=== PATIENT | female | born 1980 | race Caucasian/White ===

== ENCOUNTER 2019-12-22 22:54 | Inpatient (IN) | payer SELFPAY ==
[~2019-12-22] VITALS: Ht 162.6 cm; Wt 62.1 kg
[2019-12-22 23:08] VITALS: BP 111/67
--- NOTE | 2019-12-22 23:20 | NUR ---
PT AMB TO BED 11
--- NOTE | 2019-12-22 23:41 | NUR ---
39f C/O ABD PAIN THAT RADIATES TO LOWER BACK FOR 2D. DENIES V/D. HAS NAUSEA AND LOSS OF APPETITE. 04/16 PAIN PMHX: DENIES RX: DENIES ALLX: DENIES
[2019-12-22 23:44] LABS: APPEARANCE,URINE CLEAR (CLEAR); BILIRUBIN,URINE NEGATIVE (NEGATIVE); BLOOD, URINE 1+ (NEGATIVE); COLOR,URINE YELLOW (YELLOW); LEUKOCYTE ESTERASE ,URINE NEGATIVE (NEGATIVE); NITRITE, URINE NEGATIVE (NEGATIVE); UGLUCOSE NEGATIVE (NEGATIVE)
[2019-12-22 23:44] LABS: HEMATOCRIT 35.1 % (36-48); HEMOGLOBIN 11.2 g/dL (12.0-16.0); MEAN CORPUSCULAR HEMOGLOBIN 29 pg (27-31); MEAN CORPUSCULAR HGB CONC 32 g/dL (33-37); MEAN CORPUSCULAR VOLUME 89.4 fL (80-94); PLATELET COUNT (AUTO) 252 K/uL (140-450); RED BLOOD CELL COUNT(AUTO) 3.93 MIL/uL (4.20-5.40); RED CELL DISTRIBUTION WIDTH 14.4 % (11.6-13.7)
[2019-12-23 00:01] LABS: WHITE BLOOD COUNT (AUTO) 15.8 K/uL (4.8-10.8)
[2019-12-23 00:04] LABS: LYMPHOCYTES % (MANUAL) 3 % (20-46); MONOCYTES % (MANUAL) 6 % (5-12)
[2019-12-23 00:05] LABS: ALBUMIN 3.2 g/dL (3.4-5.0); ANION GAP 10.9 (8-16); CARBON DIOXIDE 28.8 mmol/L (21-32); POTASSIUM 3.7 mmol/L (3.5-5.1); TOTAL BILIRUBIN 0.5 mg/dL (0.0-1.0)
[2019-12-23 00:33] LABS: WBC,URINE 0-5 /HPF (0-5)
[2019-12-23] MEDS ORDERED: ONDANSETRON 4 MG/2 ML VIAL IVP ONE (01:10)
[2019-12-23] MEDS ORDERED: MORPHINE SULFATE 4 MG/ML SYR IVP ONE (01:10)
--- NOTE | 2019-12-23 01:11 | NUR ---
DR. HAGAN NOTIFIED OF PTS TEMPERATURE.
[2019-12-23] MEDS ORDERED: KETOROLAC 15 MG/ML VIAL IM ONE (01:15)
[2019-12-23] MEDS ORDERED: NACL 0.9% 2,000 ML IV SCH (01:20)
[2019-12-23] MEDS ORDERED: DOXYCYCLINE 100 MG in DEXTROSE 5% 100 ML IV SCH (01:25)
[2019-12-23] MEDS ORDERED: cefOXitin 2,000 MG in DEXTROSE 5% 50 ML IV ONE (01:25)
[2019-12-23] MEDS ORDERED: KETOROLAC 15 MG/ML VIAL IVP ONE (01:40)
[2019-12-23] MEDS ORDERED: CLINDAMYCIN 900 MG in DEXTROSE 5% 100 ML IV ONE (01:50)
[2019-12-23] MEDS ORDERED: GENTAMICIN 120 MG in DEXTROSE 5% 100 ML IV ONE (01:50)
[2019-12-23] MEDS ORDERED: GENTAMICIN 80 MG/2 ML VIAL ONE (01:55)
--- NOTE | 2019-12-23 01:59 | NUR ---
MEFOXIN 2G NOT ADMINSTERED, DR. HAGAN CHANGED ANTIBIOTIC.
--- NOTE | 2019-12-23 02:08 | NUR ---
GENTAMYCIN CURRENTLY INFUSING. PT RESTING IN BED COMFORTABLY. NO FURTHER NEEDS AT THIS TIME. BED AT LOWEST AND LOCKED, RAILS UP X 1
[2019-12-23] MEDS ORDERED: CLINDAMYCIN 900 MG/6 ML VIAL IV ONE (02:37)
--- NOTE | 2019-12-23 02:47 | NUR ---
CLINDAMYCIN INFUSION STARTED. NO FURTHER NEEDS AT THIS TIME.
--- NOTE | 2019-12-23 03:35 | NUR ---
PT RESTING IN BED. NO FURTHER NEEDS THIS TIME. STATES THAT HER PAIN IS AT A 0 NOW. BED RAILS UP X 1. BED LOWEST AND LOCKED
[2019-12-23] MEDS ORDERED: DOCUSATE SODIUM 100 MG GELCAP PO PRN (04:20)
[2019-12-23] MEDS ORDERED: NACL 0.9% 1,000 ML IV ONE (04:20)
[2019-12-23] MEDS ORDERED: LORazepam 2 MG/ML VIAL IM/IVP PRN (04:20)
[2019-12-23 05:00] VITALS: BP_SYST 115; BP_SYST 99; BP_DIAS 62; BP_DIAS 70
--- NOTE | 2019-12-23 05:00 | NUR ---
PT ARRIVED BY LASHAY TO ROOM 106 AND AMBULATED TO BED B. SHE IS AOX4 SKIN INTACT WITH LAC 20 GUAGE RUNNING NORMAL SALINE AT 100MLS/HR. PT C/O OF MINIMAL PAIN AT THIS TIME. MRSA SWAB DONE. REPORT GIVEN AT BEDSIDE FROM DIDI HALL AND APRIL HALL ER NURSES.
[2019-12-23] MEDS ORDERED: GENTAMICIN PER PHARMACY MC PRN (05:05)
--- NOTE | 2019-12-23 05:10 | NUR ---
Patient will be admitted to care of Dr Henry. Admited to TELE . Will go to room 106B. Belongings list completed. Report to Elisha HALL .
[2019-12-23] MEDS: DEXT 5% /NACL 0.9% 1,000 ML IV SCH ×3 (06:14→20:48)
[2019-12-23] MEDS: MORPHINE SULFATE 2 MG/ML SYR IVP PRN ×3 (06:27→16:03)
--- NOTE | 2019-12-23 06:30 | NUR ---
IV ABT CLEOCYN HUNG AND RUNNING ORDERED. PT C/O OF MORE SEVERE PAIN AND WAS GIVEN IVP MORPHINE ORDERED.ADMISSION QUESTIONS ASKED AND PT ORIENTED TO ROOM. ALL UNIVERSAL FALLS PRECAUTIONS IN PLACE.
[2019-12-23 07:17] LABS: BARBITURATE, URINE NEGATIVE ng/ml (NEG <=200); BENZODIAZEPINE, URINE NEGATIVE ng/mL (NEG <=200); CANNABINOID, URINE NEGATIVE ng/mL (NEG <=50); COCAINE, URINE NEGATIVE ng/mL (NEG <=300); OPIATE, URINE NEGATIVE ng/mL (NEG <=2000); PHENCYCLIDINE SCREEN,URINE NEGATIVE ng/mL (NEG <=25)
--- NOTE | 2019-12-23 07:25 | NUR ---
RECEIVED BEDSIDE REPORT FROM NIGHTSHIFT NURSE. PT RESTING IN BED. ABLE TO MAKE NEEDS KNOWN. RESPIRATIONS EVEN AND UNLABORED WITH NO SOB OR RESPIRATORY DISTRESS. SKIN WARM AND DRY TO TOUCH. IV SITE IN LEFT AC 20G IS CLEAN, DRY, AND INTACT. SAFETY MEASURES IN PLACE. WILL CONTINUE TO MONITOR
[2019-12-23 08:00] VITALS: BP 113/74
--- NOTE | 2019-12-23 08:42 | NUR ---
PATIENT HAS BEEN SCREENED AND CATEGORIZED MODERATE NUTRITION RISK. PATIENT WILL BE SEEN WITHIN 3-5 DAYS OF ADMISSION. 12/25/19 12/27/[address]
[2019-12-23 08:54] LABS: PROTHROMBIN TIME 9.8 secs (10.8-13.4)
[2019-12-23 09:37] LABS: MAGNESIUM 2.3 mg/dL (1.8-2.4); PHOSPHORUS 2.5 mg/dL (2.5-4.9); THYROID STIMULATING HORMONE 1.6 uIU/mL (0.34-3.74)
--- NOTE | 2019-12-23 09:44 | NUR ---
ADMINISTERED SCHED MED PRESCRIBED PER MD ORDER. PT TOLERATED WELL. MEDICATION EDUCATION PERFORMED. PT VERBALIZED UNDERSTANDING. SAFETY MEASURES IN PLACE. WILL CONTINUE TO MONITOR
[2019-12-23] MEDS ORDERED: GENTAMICIN 100 MG in DEXTROSE 5% 100 ML IV SCH (10:00)
[2019-12-23] MEDS: DOXYCYCLINE 100 MG CAP PO SCH ×2 (10:54→20:44)
--- NOTE | 2019-12-23 10:55 | NUR ---
ADMINISTERED SCHED MED PRESCRIBED PER MD ORDER. PT TOLERATED WELL. MEDICATION EDUCATION PERFORMED. PT VERBALIZED UNDERSTANDING. SAFETY MEASURES IN PLACE. WILL CONTINUE TO MONITOR
[2019-12-23] MEDS ORDERED: CLINDAMYCIN 900 MG in DEXTROSE 5% 100 ML IV SCH ×4 (11:00)
--- NOTE | 2019-12-23 11:49 | NUR ---
PT CALLED AND COMPLAINED OF SEVERE PAIN. PRN PAIN MEDICATION ADMINISTERED PRESCRIBED PER MD ORDER. MEDICATION WAS WASTED WITH SECOND NURSE SENIOR STAFF PSYCHOLOGIST. PT TOLERATED WELL. MEDICATION EDUCATION PERFORMED. PT VERBALIZED UNDERSTANDING. SAFETY MEASURES IN PLACE. WILL CONTINUE TO MONITOR
[2019-12-23] MEDS: cefTRIAXone 2,000 MG in DEXTROSE 5% 100 ML IV SCH (11:53)
[2019-12-23 12:00] VITALS: BP 113/75
--- NOTE | 2019-12-23 13:04 | NUR ---
HOURLY ROUNDING. PT RESTING IN BED. ABLE TO MAKE NEEDS KNOWN. RESPIRATIONS EVEN AND UNLABORED WITH NO SOB OR RESPIRATORY DISTRESS. SKIN WARM AND DRY TO TOUCH. SAFETY MEASURES IN PLACE. WILL CONTINUE TO MONITOR
--- NOTE | 2019-12-23 13:38 | NUR ---
Bark Press Operator Note: EDISON attempted to complete assessment with Corbin Raygoza [phone]. SW left voicemail and will follow up as needed.
[2019-12-23] MEDS ORDERED: BISACODYL 5 MG TABEC PO SCH (15:30)
--- NOTE | 2019-12-23 15:38 | NUR ---
ADMINISTERED SCHED MED PRESCRIBED PER MD ORDER. PT TOLERATED WELL. MEDICATION EDUCATION PERFORMED. PT VERBALIZED UNDERSTANDING. SAFETY MEASURES IN PLACE. WILL CONTINUE TO MONITOR
[2019-12-23 16:00] VITALS: BP 113/70
[2019-12-23] MEDS: ACETAMINOPHEN 325 MG TAB PO PRN (16:03)
--- NOTE | 2019-12-23 16:03 | NUR ---
PT CALLED AND COMPLAINED OF SEVERE PAIN. PRN PAIN MEDICATION ADMINISTERED PRESCRIBED PER MD ORDER. PT ALSO HAD A FEVER OR 100.4. PRN TYLENOL ADMINISTERED PRESCRIBED PER MD ORDER. MEDICATION EDUCATION PERFORMED. PT VERBALIZED UNDERSTANDING. SAFETY MEASURES IN PLACE. WILL CONTINUE TO MONITOR
--- NOTE | 2019-12-23 16:41 | NUR ---
DC PLANN[age] YRS OLD FEMALE PATIENT WAS ADMITTED FROM HOME FOR A DX OF ILEUS , POSSIBLE PYOSALPINX. PT HAS A HX OF OVARIAN FIBROIDS. CT ABD/PELVIS SHOWED DILATED FLUID-FILLED SMALL BOWEL LOOPS SUGGESTED ILEUS. BLOOD AND URINE CULTURE PENDING. ADMINISTERED IVF, IV CLEOCIN AND GENTAMICIN, CONSULTED WITH SPEECH AND HEARING CLINIC DIRECTOR DR CASTRO . DC PLAN TO GO HOME WHEN STABLE CM TO FOLLOW. Addendum: 12/24/19 at 1127 by Lavern Nunez CM SEEN BY [id number] TO CONTINUE IV ANTIBIOTIC AND TRANSVAGINAL US. TRANSVAGINAL US SHOWED HETEROGENOUS ECHOTEXTURE OF THE UTERUS. ON ROCEPHIN. DC PLAN BACK TO HOME ONCE STABLE. Addendum: 12/26/19 at 1136 by Lavern Nunez CM SEEN BY SURGEON - NO SURGICAL INTERVENTION AT THIS TIME, RECOMMENDED GI CONSULT. SEEN BY OB-GYNE - TO CONTINUE ANTIBIOTICS. DC PLAN BACK TO HOME ONCE STABLE.
--- NOTE | 2019-12-23 19:05 | NUR ---
ENDORSED AT BEDSIDE. PT IS STABLE
--- NOTE | 2019-12-23 19:06 | NUR ---
RECEIVED PATIENT IN STABLE CONDITION FROM AM SHIFT NURSE FOR CONTINUITY OF CARE. RESPIRATIONS EVEN, UNLABORED. SKIN WARM, DRY. IV SITE NOTED TO LEFT AC 20G PATENT/INTACT, INFUSING FLUIDS WELL. NO C/O PAIN. NO S/SX ACUTE DISTRESS. CALL LIGHT WITHIN REACH. WILL CONTINUE TO MONITOR.
[2019-12-23 20:00] VITALS: BP 110/61
--- NOTE | 2019-12-23 21:30 | NUR ---
PATIENT AWAKE AND ON PHONE TALKING WITH FAMILY. NO C/O PAIN. NO S/SX ACUTE DISTRESS. CALL LIGHT WITHIN REACH. WILL CONTINUE TO MONITOR.
--- NOTE | 2019-12-23 23:29 | NUR ---
PATIENT RESTING COMFORTABLY IN BED. NO C/O PAIN. NO S/SX ACUTE DISTRESS. CONTINUES IN STABLE CONDITION. CALL LIGHT WITHIN REACH. WILL CONTINUE TO MONITOR.
[2019-12-24] VITALS: BP 133/80
[2019-12-24] MEDS: ONDANSETRON 4 MG/2 ML VIAL IM/IVP PRN (00:22)
[2019-12-24] MEDS: HYDROcodone/APAP 5/325 MG 1 TAB TAB PO PRN (00:23)
--- NOTE | 2019-12-24 00:23 | NUR ---
PATIENT C/O ACHING ABDOMINAL PAIN 02/14. MEDICATED ORDERED. CALL LIGHT WITHIN REACH. WILL CONTINUE TO MONITOR.
--- NOTE | 2019-12-24 01:23 | NUR ---
REASSESSED PATIENT'S PAIN LEVEL AT 0/10. NO S/SX ACUTE DISTRESS. CALL LIGHT WITHIN REACH. WILL CONTINUE TO MONITOR.
--- NOTE | 2019-12-24 01:50 | NUR ---
MADE ROUNDS. PATIENT CONTINUES IN STABLE CONDITION. NO C/O PAIN. NO S/SX ACUTE DISTRESS. CALL LIGHT WITHIN REACH. WILL CONTINUE TO MONITOR.
--- NOTE | 2019-12-24 03:03 | NUR ---
PATIENT CONTINUES IN STABLE CONDITION. NO C/O PAIN. NO S/SX ACUTE DISTRESS. CALL LIGHT WITHIN REACH. WILL CONTINUE TO MONITOR.
[2019-12-24 04:00] VITALS: BP 101/64
--- NOTE | 2019-12-24 05:19 | NUR ---
PATIENT AWAKE AND IN STABLE CONDITION. NO C/O PAIN. NO S/SX ACUTE DISTRESS. CALL LIGHT WITHIN REACH. WILL CONTINUE TO MONITOR.
[2019-12-24 07:10] LABS: BASOPHILS # (AUTO) 0.1 K/uL (0.00-0.22); BASOPHILS % (AUTO) 0.5 % (0.0-2.0); EOSINOPHILS # (AUTO) 0.1 K/uL (0-0.4); EOSINOPHILS % (AUTO) 0.4 % (0.0-4.0); HEMATOCRIT 30.8 % (36-48); HEMOGLOBIN 9.8 g/dL (12.0-16.0); LYMPHOCYTES # (AUTO) 1.3 K/uL (2.5-16.5); LYMPHOCYTES % (AUTO) 9.4 % (20.5-51.1); MEAN CORPUSCULAR HEMOGLOBIN 29 pg (27-31); MEAN CORPUSCULAR HGB CONC 32 g/dL (33-37); MEAN CORPUSCULAR VOLUME 89.6 fL (80-94); MONOCYTES # (AUTO) 1.1 K/uL (0.8-1.0); NEUTROPHILS % (AUTO) 81.7 % (42.2-75.2); PLATELET COUNT (AUTO) 261 K/uL (140-450); RED BLOOD CELL COUNT(AUTO) 3.44 MIL/uL (4.20-5.40); RED CELL DISTRIBUTION WIDTH 14.9 % (11.6-13.7); WHITE BLOOD COUNT (AUTO) 13.4 K/uL (4.8-10.8)
--- NOTE | 2019-12-24 07:17 | NUR ---
ENDORSED PATIENT IN STABLE CONDITION TO AM SHIFT NURSE FOR CONTINUITY OF CARE.
--- NOTE | 2019-12-24 07:18 | NUR ---
RECEIVED REPORT FROM APARTMENT LEASING AGENT NURSE. PT IS LYING IN BED, AWAKE AND RESTING; AA&OX4. RESPIRATIONS ARE EVEN AND UNLABORED, BREATHING TO RA. LAC IV IS INTACT AND PATENT. SKIN INTACT. REVIEWED PLAN OF CARE WITH PT. SAFETY MEASURES IN PLACE; CALL LIGHT WITHIN REACH, BED IN LOW POSITION. WILL CONTINUE TO MONITOR.
[2019-12-24 07:36] LABS: CHOL/HDL RATIO 4.1 (1-4.5)
[2019-12-24 08:00] VITALS: BP 133/77
[2019-12-24 08:05] LABS: ANION GAP 12.4 (8-16); CREATININE 0.7 mg/dL (0.6-1.3); POTASSIUM 4.4 mmol/L (3.5-5.1)
[2019-12-24] MEDS: MORPHINE SULFATE 2 MG/ML SYR IVP PRN (09:22)
[2019-12-24] MEDS: DOXYCYCLINE 100 MG CAP PO SCH (09:22)
--- NOTE | 2019-12-24 09:22 | NUR ---
PT COMPLAINED OF 8/10 HEADACHE PAIN. STATED, "I HAVEN'T SLEPT IN 4 DAYS". 1 MG IVP MORPHINE WAS GIVE. WILL REASSESS PAIN. SCHEDULED PO ANTIBIOTIC WAS ALSO GIVEN. PT TOLERATED PO MED WELL. MEDICATION EDUCATION GIVEN, PT VERBALIZED UNDERSTANDING. SAFETY MEASURES IN PLACE. WILL CONTINUE TO MONITOR.
[2019-12-24] MEDS: ACETAMINOPHEN 325 MG TAB PO PRN (11:21)
--- NOTE | 2019-12-24 11:21 | NUR ---
PT COMPLAINS OF HEADACHE PAIN; PRN TYLENOL GIVEN, ORDERED. WILL REASSESS PAIN. IV FLUIDS WERE HUNG, AND ARE INFUSING PER ORDERS. NO ACUTE DISTRESS NOTED. WILL CONTINUE TO MONITOR.
[2019-12-24] MEDS: DEXT 5% /NACL 0.9% 1,000 ML IV SCH (11:24)
[2019-12-24 12:00] VITALS: BP 138/80
--- NOTE | 2019-12-24 12:12 | NUR ---
DR CASTRO IS AT [facility]. PER DR CASTRO, PT IS NOW NPO.
[2019-12-24] MEDS: cefTRIAXone 2,000 MG in DEXTROSE 5% 100 ML IV SCH (12:16)
--- NOTE | 2019-12-24 12:22 | NUR ---
PT'S IVPB ANTIBIOTIC STARTED AND RUNNING PER ORDERS. PT STATED, "I FEEL HOT." TEMPERATURE WAS TAKEN. TEMP: 99.4. WILL CONTINUE TO MONITOR.
[2019-12-24] MEDS: metroNIDAZOLE 500 MG/NS PREMIX 100 ML IV SCH ×2 (14:48→21:00)
--- NOTE | 2019-12-24 14:48 | NUR ---
PT REPORTS 5/10 HEADACHE PAIN. TORADOL WAS ADMINISTERED IV PUSH. WILL REASSESS PAIN. IVPB ANTIBIOTICS WERE HUNG, AND RUNNING PER ORDERS. WILL CONTINUE TO MONITOR.
[2019-12-24] MEDS ORDERED: KETOROLAC 15 MG/ML VIAL IM SCH (15:00)
[2019-12-24 16:00] VITALS: BP 113/76
[2019-12-24] MEDS: KETOROLAC 30 MG/ML VIAL IVP SCH ×2 (18:00→23:09)
--- NOTE | 2019-12-24 19:27 | NUR ---
GAVE BEDSIDE REPORT FOR HEART COORDINATOR NURSE FOR CONTINUITY OF CARE. PT IS IN STABLE CONDITION.
--- NOTE | 2019-12-24 19:34 | NUR ---
RECEIVED PATIENT IN STABLE CONDITION FROM AM SHIFT NURSE FOR CONTINUITY OF CARE. TELE PATIENT. AAOX4. RESPIRATIONS EVEN, UNLABORED. SKIN WARM, DRY. IV SITE NOTED TO LEFT AC 20G PATENT/INTACT, INFUSING FLUIDS WELL. NO C/O PAIN. NO S/SX ACUTE DISTRESS. CALL LIGHT WITHIN REACH. WILL CONTINUE TO MONITOR.
[2019-12-24 20:00] VITALS: BP 130/82
[2019-12-24] MEDS: DOXYCYCLINE 100 MG in DEXTROSE 5% 100 ML IV SCH (20:11)
--- NOTE | 2019-12-24 21:50 | NUR ---
IV SITE TO LEFT AC 20G LEAKING; DISCONTINUED IV SITE WITH MINIMAL BLEEDING, CANNULA INTACT. NEW IV SITE STARTED TO RIGHT HAND 24G USING ASEPTIC TECHNIQUE. GOOD BLOOD RETURN. NO C/O PAIN. IV FLUIDS INFUSING WELL. CALL LIGHT WITHIN REACH. WILL CONTINUE TO MONITOR.
--- NOTE | 2019-12-24 23:18 | NUR ---
PATIENT ON PHONE WITH FAMILY. DUE MEDS GIVEN. NO S/SX ACUTE DISTRESS. CALL LIGHT WITHIN REACH. WILL CONTINUE TO MONITOR.
[2019-12-25] VITALS: BP 107/55
--- NOTE | 2019-12-25 | NUR ---
RECEIVED PT. AAOX4, NID , IV SITE INTACT AND PATENT , DENIES PAIN. LIQ. DIET TOLERATED . SEEN BY DR. CASTRO PER AM NOD SAID. SAFETY MEASURES IN PLACE - CALL LIGHT WITHIN REACH . POC DISCUSSED AND VERBALIZE UNDERSTANDING , WILL CONT. TO MONITOR. AFEBRILE. Addendum: 12/26/19 at 0357 by Queenie Caraballo RN THE ABOVE NURSE'S NOTES ENRTY IS ERROR WITH REGARDS TO TIME - 0000 - INSTEAD OF 1930 - TOMMY
--- NOTE | 2019-12-25 01:14 | NUR ---
MADE ROUNDS. PATIENT ASLEEP AND IN STABLE CONDITION. NO C/O PAIN. NO S/SX ACUTE DISTRESS. CALL LIGHT WITHIN REACH. WILL CONTINUE TO MONITOR.
--- NOTE | 2019-12-25 03:03 | NUR ---
PATIENT IS ASLEEP AND IN STABLE CONDITION. NO C/O PAIN. NO S/SX ACUTE DISTRESS. CALL LIGHT WITHIN REACH. WILL CONTINUE TO MONITOR.
[2019-12-25 04:00] VITALS: BP 115/76
[2019-12-25] MEDS: metroNIDAZOLE 500 MG/NS PREMIX 100 ML IV SCH ×3 (04:06→22:08)
[2019-12-25 05:17] LABS: BASOPHILS # (AUTO) 0.1 K/uL (0.00-0.22); BASOPHILS % (AUTO) 0.8 % (0.0-2.0); EOSINOPHILS # (AUTO) 0.1 K/uL (0-0.4); EOSINOPHILS % (AUTO) 0.8 % (0.0-4.0); HEMATOCRIT 30.2 % (36-48); HEMOGLOBIN 9.9 g/dL (12.0-16.0); LYMPHOCYTES # (AUTO) 0.9 K/uL (2.5-16.5); LYMPHOCYTES % (AUTO) 9.6 % (20.5-51.1); MEAN CORPUSCULAR HEMOGLOBIN 29 pg (27-31); MEAN CORPUSCULAR HGB CONC 33 g/dL (33-37); MEAN CORPUSCULAR VOLUME 88.5 fL (80-94); MONOCYTES # (AUTO) 0.8 K/uL (0.8-1.0); MONOCYTES % (AUTO) 8.4 % (1.7-9.3); NEUTROPHILS # (AUTO) 7.8 K/uL (1.8-7.7); NEUTROPHILS % (AUTO) 80.4 % (42.2-75.2); PLATELET COUNT (AUTO) 277 K/uL (140-450); RED BLOOD CELL COUNT(AUTO) 3.41 MIL/uL (4.20-5.40); RED CELL DISTRIBUTION WIDTH 14.9 % (11.6-13.7); WHITE BLOOD COUNT (AUTO) 9.7 K/uL (4.8-10.8)
[2019-12-25] MEDS: KETOROLAC 30 MG/ML VIAL IVP SCH ×3 (05:22→18:29)
--- NOTE | 2019-12-25 05:24 | NUR ---
PATIENT AWAKE AND IN STABLE CONDITION. NO S/SX ACUTE DISTRESS. DUE MEDS GIVEN. CALL LIGHT WITHIN REACH. WILL CONTINUE TO MONITOR.
[2019-12-25] MEDS: DEXT 5% /NACL 0.9% 1,000 ML IV SCH ×2 (05:54→18:48)
[2019-12-25 06:20] LABS: ANION GAP 12.7 (8-16); CARBON DIOXIDE 25.7 mmol/L (21-32); CREATININE 0.7 mg/dL (0.6-1.3); POTASSIUM 3.4 mmol/L (3.5-5.1)
[2019-12-25 06:25] LABS: MAGNESIUM 1.7 mg/dL (1.8-2.4); PHOSPHORUS 3.3 mg/dL (2.5-4.9)
[2019-12-25] MEDS ORDERED: POTASSIUM CHLORIDE 40 MEQ, LIDOCAINE MPF 1% 25 MG in NACL 0.9% 250 ML IV ONE (06:45)
[2019-12-25] MEDS ORDERED: MAG SULF 2000 MG/WATER PREMIX 50 ML IV ONE (06:45)
--- NOTE | 2019-12-25 07:00 | NUR ---
ENDORSED TO AM SHIFT NURSE FOR CONTINUITY OF CARE.
--- NOTE | 2019-12-25 07:01 | NUR ---
RECEIVED REPORT FROM [facility] NURSE. PT IS LYING IN BED, RESTING; A&OX4. RESPIRATIONS ARE EVEN AND UNLABORED, BREATHING TO RA. RT HAND IV IS INTACT AND PATENT. SKIN INTACT. REVIEWED PLAN OF CARE WITH PT. SAFETY MEASURES IN PLACE; CALL LIGHT WITHIN REACH, BED IN LOW POSITION. TELE MONITOR ATTACHED. WILL CONTINUE TO MONITOR.
[2019-12-25 08:00] VITALS: BP 106/65
[2019-12-25] MEDS: HYDROcodone/APAP 5/325 MG 1 TAB TAB PO PRN (08:33)
[2019-12-25] MEDS: ONDANSETRON 4 MG/2 ML VIAL IM/IVP PRN (08:33)
--- NOTE | 2019-12-25 08:33 | NUR ---
MAGNESIUM IV WAS HUNG, AND RUNNING PER ORDERS. PT COMPLAINED OF HEADACHE PAIN AND NAUSEA. PRN PO NORCO AND PRN IVP ZOFRAN ADMINISTERED. MEDICATION EDUCATION GIVEN, WITH PT VERBALIZING UNDERSTANDING. WILL REASSESS PAIN. SAFETY MEASURES IN PLACE. WILL CONTINUE TO MONITOR.
[2019-12-25] MEDS ORDERED: diphenhydrAMINE 50 MG/ML VIAL IVP SCH (09:00)
[2019-12-25] MEDS ORDERED: POTASSIUM CHLORIDE 40 MEQ, LIDOCAINE MPF 1% 25 MG in NACL 0.9% 250 ML IV SCH (09:00)
--- NOTE | 2019-12-25 10:33 | NUR ---
IVP BENADRYL WAS ADMINISTERED. IV POTASSIUM WAS HUNG, AND IS RUNNING PER ORDERS. MEDICATION EDUCATION GIVEN, WITH PT VERBALIZING UNDERSTANDING. SAFETY MEASURES IN PLACE. NO DISTRESS NOTED. SAFETY MEASURES IN PLACE. TELE MONITOR ATTACHED. WILL CONTINUE TO MONITOR.
[2019-12-25 12:00] VITALS: BP 112/72
--- NOTE | 2019-12-25 12:42 | NUR ---
SCHEDULED IV TORADOL IVP WAS ADMINISTERED. POTASSIUM IV IS STILL INFUSING; SCHEDULED IV ANTIBIOTICS WERE HELD. MEDICATION EDUCATION GIVEN, WITH PT VERBALIZING UNDERSTANDING. SAFETY MEASURES IN PLACE. NO DISTRESS NOTED. SAFETY MEASURES IN PLACE. TELE MONITOR ATTACHED. WILL CONTINUE TO MONITOR.
[2019-12-25] MEDS: DOXYCYCLINE 100 MG in DEXTROSE 5% 100 ML IV SCH ×2 (15:45→20:16)
--- NOTE | 2019-12-25 15:51 | NUR ---
POTASSIUM INFUSION IS COMPLETE. IVPB DOXYCYCLINE WAS HUNG, AND IS INFUSING PER ORDERS. MEDICATION EDUCATION, PROVIDED. PT IN STABLE CONDITION. SAFETY MEASURES IN PLACE. WILL CONTINUE TO MONITOR.
[2019-12-25 16:00] VITALS: BP 125/75
[2019-12-25] MEDS: cefTRIAXone 2,000 MG in DEXTROSE 5% 100 ML IV SCH (17:11)
--- NOTE | 2019-12-25 17:17 | NUR ---
IVPB ABX, DOXYCYCLINE IS COMPLETE. ROCEPHIN IVPB HUNG, AND RUNNING PER ORDERS. PT IS TALKING ON PHONE, NO DISTRESS NOTED. SAFETY MEASURES IN PLACE WILL CONTINUE TO MONITOR.
--- NOTE | 2019-12-25 18:35 | NUR ---
SCHEDULED TORADOL GIVEN. MEDICATION EDUCATION PROVIDED. NO DISTRESS NOTED. WILL CONTINUE TO MONITOR.
[2019-12-25 20:00] VITALS: BP 122/76
--- NOTE | 2019-12-25 22:00 | NUR ---
MADE ROUNDS , NO COMPLAIN MADE AT THIS TIME. WILL CONT. TO MONITOR . CALL LIGHT WITHIN REACH.
[2019-12-26] VITALS: BP 122/78
--- NOTE | 2019-12-26 | NUR ---
C/O PAIN - SHED. TORADOL TIV GIVEN , WILL CONT. TO MONITOR - CALL LIGHT WITHIN REACH.
[2019-12-26] MEDS: KETOROLAC 30 MG/ML VIAL IVP SCH ×4 (00:04→17:16)
[2019-12-26] MEDS: NACL 0.9% 1,000 ML IV SCH ×3 (00:04→21:26)
[2019-12-26] MEDS ORDERED: TEMAZEPAM 15 MG CAP PO SCH (00:20)
--- NOTE | 2019-12-26 02:00 | NUR ---
SLEEPING - CHEST RISE AND FALL EQUALLY - WILL CONT. TO MONITOR . CALL LIGHT WITHIN REACH.
[2019-12-26 04:00] VITALS: BP 124/78
--- NOTE | 2019-12-26 04:04 | NUR ---
MADE ROUNDS . NO S/S OF ACUTE DISTRESS NOTED AT THIS TIME .
[2019-12-26] MEDS: metroNIDAZOLE 500 MG/NS PREMIX 100 ML IV SCH ×3 (05:40→21:28)
--- NOTE | 2019-12-26 06:00 | NUR ---
MADE ROUNDS , NO COMPLAIN MADE . CALL LIGHT WITHIN REACH.
[2019-12-26 06:54] LABS: BASOPHILS % (AUTO) 0.6 % (0.0-2.0); EOSINOPHILS # (AUTO) 0.1 K/uL (0-0.4); EOSINOPHILS % (AUTO) 0.8 % (0.0-4.0); HEMOGLOBIN 9.8 g/dL (12.0-16.0); LYMPHOCYTES # (AUTO) 0.9 K/uL (2.5-16.5); LYMPHOCYTES % (AUTO) 10.7 % (20.5-51.1); MEAN CORPUSCULAR HEMOGLOBIN 29 pg (27-31); MEAN CORPUSCULAR HGB CONC 33 g/dL (33-37); MEAN CORPUSCULAR VOLUME 87.7 fL (80-94); MONOCYTES # (AUTO) 0.9 K/uL (0.8-1.0); MONOCYTES % (AUTO) 10.3 % (1.7-9.3); NEUTROPHILS # (AUTO) 6.6 K/uL (1.8-7.7); NEUTROPHILS % (AUTO) 77.6 % (42.2-75.2); PLATELET COUNT (AUTO) 304 K/uL (140-450); RED BLOOD CELL COUNT(AUTO) 3.42 MIL/uL (4.20-5.40); RED CELL DISTRIBUTION WIDTH 14.6 % (11.6-13.7); WHITE BLOOD COUNT (AUTO) 8.4 K/uL (4.8-10.8)
[2019-12-26 07:03] LABS: ANION GAP 15.3 (8-16); CARBON DIOXIDE 24.2 mmol/L (21-32); CREATININE 0.6 mg/dL (0.6-1.3); POTASSIUM 3.5 mmol/L (3.5-5.1)
[2019-12-26 07:09] LABS: MAGNESIUM 1.6 mg/dL (1.8-2.4); PHOSPHORUS 3.4 mg/dL (2.5-4.9)
--- NOTE | 2019-12-26 07:10 | NUR ---
PT IS IN BED AWAKE AND RESPONSIVE TO VERBAL COMMANDS. NO COMPLAINS OF PAIN REPORTED. WILL CONTINUE TO MONITOR. CALL LIGHT IN REACH.
--- NOTE | 2019-12-26 07:10 | NUR ---
ENDORSED - PT - STABLE
[2019-12-26] MEDS ORDERED: HYDR-5122 PO (07:19)
[2019-12-26 08:00] VITALS: BP 121/69
[2019-12-26] MEDS ORDERED: APAP/BUTAL/CAFF 325/50/40 MG 1 TAB PO PRN (08:20)
[2019-12-26] MEDS: LACTOBACILLUS RHAMNOSUS GG 1 EACH CAP PO SCH (08:52)
[2019-12-26] MEDS ORDERED: MAG SULF 2000 MG/WATER PREMIX 50 ML IV SCH (09:00)
--- NOTE | 2019-12-26 09:30 | NUR ---
PT IS RESTING IN BED. PT IS ALERT AWAKE AND RESPONSIVE TO VERBAL STIMULI. PT AMBULATES TO BATHROOM WITH STEADY GAIT. NO DISTRESS NOTED. SAFETY MEASURES IN PLACE. WILL CONTINUE TO MONITOR. CALL LIGHT IN REACH.
[2019-12-26] MEDS: DOXYCYCLINE 100 MG in DEXTROSE 5% 100 ML IV SCH ×2 (09:52→20:13)
--- NOTE | 2019-12-26 10:24 | NUR ---
Stock Or Delivery Clerk Note: SW attempted to conduct assessment with patient's Mireya Raygoza [phone]. SW left VM and will follow up. Addendum: 12/26/19 at 1048 by Ravi Gomez SS Basic Screen: Yes High Risk DC Screen [place]: MIREYA RAYGOZA [place] Relationship: Pre-Admission Living Arrangements: Lives with Other Prior ADL Independent Current Home Health Name/Tel: N/A Current DME/02 Name/Tel: N/A Current Hospice Name/Tel: N/A Current Dialysis Name/Tel: N/A Healthcare Decision Maker: Patient Advance Directive No Physician Orders for Life Sustaining Treatment Form No Patient/Family Have Educational Needs No Discipline: Case Mgt/Social Svcs Tentative Discharge Plan/Destination: No Needs Identified Will require assistance post discharge: No Referred to Integration Director: No Tentative Discharge Plan Summary: Patient is a 39-year-old female admitted for ileus and possible pyosalpin. Patient has PMHX of uterine fibroid and ovarian fibroids. Patient was admitted from home where she lives with her . SW was contacted by Mireya Raygoza [phone]. Per Mireya, patient is independent with all ADLs, is alert/oriented at baseline, and has no history of mental health or substance abuse. Tentative discharge plan is for patient to return home. No further needs identified. Signature: GIOVANA Giraldo Date: Dec 26, 2019 Time: 10:48
--- NOTE | 2019-12-26 12:30 | NUR ---
PT IS RESTING IN BED. PT IS ALERT AWAKE AND RESPONSIVE TO VERBAL STIMULI. NO DISTRESS NOTED. SAFETY MEASURES IN PLACE. PT HAD LUNCH. WILL CONTINUE TO MONITOR. CALL LIGHT IN REACH.
[2019-12-26] MEDS: cefTRIAXone 2,000 MG in DEXTROSE 5% 100 ML IV SCH (13:50)
--- NOTE | 2019-12-26 14:01 | NUR ---
PT IS RESTING IN BED. PT IS ALERT AWAKE AND RESPONSIVE TO VERBAL STIMULI. NO DISTRESS NOTED. PT TALKING TO FAMILY OVER PHONE. SAFETY MEASURES IN PLACE. WILL CONTINUE TO MONITOR. CALL LIGHT IN REACH.
[2019-12-26 16:00] VITALS: BP 118/73
--- NOTE | 2019-12-26 19:23 | NUR ---
SHIFT REPORT GIVEN TO COMMERCIAL HVAC SERVICE TECHNICIAN NURSE. PT IS IN STABLE CONDITION. CALL LIGHT IN REACH.
--- NOTE | 2019-12-26 19:23 | NUR ---
RECEIVED PT AAOX4 , NID , IV SITE INTACT AND PATENT , DENIES PAIN AT THIS TIME . AMBULATORY .SAFETY MEASURES INPLACE - CALL LIGHT WITHIN REACH . ON FULL LIQ. DIET RE EMPHASIZED . POC DISCUSSED AND VERBALIZE UNDERSTANDING . WILL CONT. TO MONITOR.
[2019-12-26] MEDS ORDERED: TEMAZEPAM 15 MG CAP PO PRN (20:00)
[2019-12-26] MEDS: PANTOPRAZOLE 40 MG INJ VIAL IVP SCH (21:28)
--- NOTE | 2019-12-26 22:00 | NUR ---
MADE ROUNDS . NO S/S AOF ACUTE DISTRESS NOTED AT THIS TIME . CALL LIGHT WITHIN REACH.
--- NOTE | 2019-12-27 | NUR ---
MADE ROUNDS , NO COMPLAIN MADE AT THIS TIME . CALL LIGHT WITHIN REACH.
[2019-12-27] MEDS: KETOROLAC 30 MG/ML VIAL IVP SCH ×3 (00:04→11:55)
--- NOTE | 2019-12-27 02:00 | NUR ---
SLEEPING - CHEST RISE AND FALL EQUALLY . CALL LIGHT WITHIN REACH.
[2019-12-27 04:00] VITALS: BP 112/65
[2019-12-27] MEDS: metroNIDAZOLE 500 MG/NS PREMIX 100 ML IV SCH ×2 (05:30→13:09)
--- NOTE | 2019-12-27 06:00 | NUR ---
MADE ROUNDS, NO COMPLAIN MADE .
--- NOTE | 2019-12-27 07:11 | NUR ---
ENDORSED - PT - STABLE
[2019-12-27 08:05] VITALS: BP 119/68
[2019-12-27] MEDS: LACTOBACILLUS RHAMNOSUS GG 1 EACH CAP PO SCH (09:19)
[2019-12-27] MEDS: PANTOPRAZOLE 40 MG INJ VIAL IVP SCH (09:20)
[2019-12-27] MEDS: DOXYCYCLINE 100 MG in DEXTROSE 5% 100 ML IV SCH (09:20)
--- NOTE | 2019-12-27 09:20 | NUR ---
Patient resting comfortably in bed with no complaint of any pain or discomfort. Scheduled IV abx and other morning medications given per order. Patient stable at this time.
[2019-12-27] MEDS ORDERED: DOXY100C9 PO (10:12)
[2019-12-27] MEDS ORDERED: ASCO1CAP75 PO (10:12)
[2019-12-27] MEDS: cefTRIAXone 2,000 MG in DEXTROSE 5% 100 ML IV SCH (11:55)
[2019-12-27 12:00] VITALS: BP 123/62
[2019-12-27] MEDS: NACL 0.9% 1,000 ML IV SCH (12:30)
--- NOTE | 2019-12-27 13:10 | NUR ---
Scheduled IV abx given. Patient resting in bed, talking on cell phone. No distress noted. Patient stable at this time.
--- NOTE | 2019-12-27 14:40 | NUR ---
Patient ambulated to bathroom and back to bed. Patient stable at this time.
[2019-12-27 14:48] VITALS: BP 123/62
--- NOTE | 2019-12-27 15:15 | NUR ---
Discharge instructions Both written and verbal discharge instructions given to patient. Patient verbalized understanding of instructions. All belongings with patient. Patient stable at this time; awaiting family to mushroom picker.
--- NOTE | 2019-12-27 16:10 | NUR ---
Discharge Patient discharged to home in stable condition.
[2019-12-28 06:08] LABS: CHLAMYDIA TRACHOMATIS AMP DNA Negative (Negative)
== END 2019-12-27 16:10 | disposition home or self-care (01) | DRG 872 ==
LOC: MED 22:54 → MTU 12-23 04:23
PROVIDERS: ADMIT General Practice; ATTEND General Practice
DX: A41.9 Sepsis, unspecified organism (principal); N17.9 Acute kidney failure, unspecified; K56.7 Ileus, unspecified; E44.1 Mild protein-calorie malnutrition; R65.20 Severe sepsis without septic shock; N70.91 Salpingitis, unspecified; D64.9 Anemia, unspecified; E88.09 Other disorders of plasma-protein metabolism, not elsewhere classified; D25.9 Leiomyoma of uterus, unspecified; R73.9 Hyperglycemia, unspecified; Z83.3 Family history of diabetes mellitus; Z82.49 Family history of ischemic heart disease and other diseases of the circulatory system; Z68.37 Body mass index [BMI] 37.0-37.9, adult; N28.1 Cyst of kidney, acquired; N73.9 Female pelvic inflammatory disease, unspecified; E83.42 Hypomagnesemia; E87.6 Hypokalemia
CPT/HCPCS: 36415; 76830; 80048; 80053; 80305; 81001; 83036; 83605; 83690; 83735; 83880; 84100; 84443; 84703; 85025; 85610; 85651; 85730; 86140; 87040; 87081; 87086; 87491; 96365; 96367; 96375; 99291; C9113; J0694; J0696; J1200; J1580; J1885; J2001; J2270; J2405; J3475; J3480; J3490; J7030; J7042; J7060; Q0092; Q9967

== ENCOUNTER 2020-05-11 16:37 | Emergency (ER) | payer MEDICAID, SELFPAY ==
[~2020-05-11] VITALS: Ht 162.6 cm; Wt 60.8 kg
[~2020-05-11 16:37] MED LIST: ASCO1CAP75 PO; DOXY100C9 PO; HYDR-5122 PO
[2020-05-11 16:51] VITALS: BP 124/73
--- NOTE | 2020-05-11 17:17 | NUR ---
40 Y/O F C/C LOWER ABDOMINAL PAIN 10/10, RADIATING TO THE RLE AND LOWER BACK, NOTHING ALLEVIATES IT, ACTIVITY/REST EXACERBATES PAIN X 4 DAYS. PT DENIES DYSURIA,HEMATURIA. TAKEN NORCO/IBUPROFEN FOR PAIN WITH NO RELIEF. NKA. NO HX. SX FIBROSIS 2000,APPENDIX 1997,OVARIAN CYST 2001. NO HX. NO RX. NO NVD. SIDE RAIL X1.
--- NOTE | 2020-05-11 17:20 | NUR ---
ERMD AT BEDSIDE
[2020-05-11] MEDS ORDERED: KETOROLAC 15 MG/ML VIAL IVP ONE (17:35)
[2020-05-11] MEDS ORDERED: MORPHINE SULFATE 4 MG/ML SYR IVP ONE (17:35)
[2020-05-11] MEDS ORDERED: ONDANSETRON 4 MG/2 ML VIAL IVP ONE (17:35)
[2020-05-11 17:56] LABS: BASOPHILS % (AUTO) 0.3 % (0.0-2.0); EOSINOPHILS % (AUTO) 0.4 % (0.0-4.0); HEMOGLOBIN 10.2 g/dL (12.0-16.0); LYMPHOCYTES # (AUTO) 0.8 K/uL (2.5-16.5); LYMPHOCYTES % (AUTO) 6.2 % (20.5-51.1); MEAN CORPUSCULAR HEMOGLOBIN 28 pg (27-31); MEAN CORPUSCULAR HGB CONC 31 g/dL (33-37); MEAN CORPUSCULAR VOLUME 88.4 fL (80-94); MONOCYTES # (AUTO) 1.2 K/uL (0.8-1.0); MONOCYTES % (AUTO) 9.1 % (1.7-9.3); NEUTROPHILS # (AUTO) 10.7 K/uL (1.8-7.7); PLATELET COUNT (AUTO) 268 K/uL (140-450); RED BLOOD CELL COUNT(AUTO) 3.73 MIL/uL (4.20-5.40); RED CELL DISTRIBUTION WIDTH 18.2 % (11.6-13.7); WHITE BLOOD COUNT (AUTO) 12.8 K/uL (4.8-10.8)
--- NOTE | 2020-05-11 17:56 | NUR ---
URINE COLLECTED / BLOOD COLLECTED RAINBOW GIVEN TO LAB
[2020-05-11 17:57] LABS: APPEARANCE,URINE CLEAR (CLEAR); BILIRUBIN,URINE NEGATIVE (NEGATIVE); BLOOD, URINE 2+ (NEGATIVE); COLOR,URINE ORANGE (YELLOW); LEUKOCYTE ESTERASE ,URINE NEGATIVE (NEGATIVE); NITRITE, URINE NEGATIVE (NEGATIVE); UGLUCOSE NEGATIVE (NEGATIVE)
--- NOTE | 2020-05-11 17:57 | NUR ---
US AT BEDSIDE
[2020-05-11 18:15] LABS: ALBUMIN 3.2 g/dL (3.4-5.0); ANION GAP 16.7 (8-16); CARBON DIOXIDE 23.9 mmol/L (21-32); CREATININE 0.5 mg/dL (0.6-1.3); POTASSIUM 3.6 mmol/L (3.5-5.1); TOTAL BILIRUBIN 0.3 mg/dL (0.0-1.0)
--- NOTE | 2020-05-11 18:33 | NUR ---
Patient taken to CT scan via wheelchair by tech.
--- NOTE | 2020-05-11 18:49 | NUR ---
Patient returned from CT scan. RN reevaluating the patient at bedside.
--- NOTE | 2020-05-11 19:05 | NUR ---
REPORT RECEIVED FROM ZOE HALL FOR CONTINUITY OF CARE
--- NOTE | 2020-05-11 19:06 | NUR ---
REPORT GIVEN TO JONATHAN HALL FOR CONTINUITY OF CARE
--- NOTE | 2020-05-11 19:20 | NUR ---
PT STATED MEDICATIONS "HELPED A LITTLE" PT STATES 8/ PAIN. ERMD MADE AWARE.
[2020-05-11] MEDS ORDERED: HYDROmorphone PFS 2 MG/ML SYR IVP ONE (19:35)
[2020-05-11 19:57] LABS: RBC,URINE 11-20 (MOD) /HPF (0-5); WBC,URINE 0-5 /HPF (0-5)
[2020-05-11 20:17] VITALS: BP 125/70
--- NOTE | 2020-05-11 20:17 | NUR ---
Patient discharged with v/s stable. Written and verbal after care instructions given and explained. Patient verbalized understanding. Ambulatory with steady gait. ID Band Removed. IV Discontinued. All questions addressed prior to discharge. Advised to follow up with PMD.
== END 2020-05-11 20:17 | disposition home or self-care (01) ==
LOC: MED 16:37
DX: N83.291 Other ovarian cyst, right side (principal); D25.9 Leiomyoma of uterus, unspecified; K59.00 Constipation, unspecified; Z90.49 Acquired absence of other specified parts of digestive tract; Z98.890 Other specified postprocedural states; Z79.899 Other long term (current) drug therapy
CPT/HCPCS: 36415; 74176; 76856; 80053; 81001; 83690; 84703; 85025; 96374; 96375; 99285; J1170; J1885; J2270; J2405; Q0092

== ENCOUNTER 2020-08-10 13:02 | Outpatient (CLI) | payer OTHER, SELFPAY | END 2020-08-10 23:59 | disposition home or self-care (01) | LOC: MLB 13:02 → EDSTATUS 08-17 07:30 | PROVIDERS: ATTEND Obstetrics & Gynecology | DX: U07.1 COVID-19 (principal) ==

== ENCOUNTER 2020-09-03 06:09 | Inpatient (IN) | payer OTHER ==
[~2020-09-03] VITALS: Ht 162.6 cm; Wt 59.0 kg
[~2020-09-03 06:09] MED LIST changes: -ASCO1CAP75 PO; -DOXY100C9 PO; -HYDR-5122 PO; +ONDANSETRON 4 MG/2 ML VIAL IVP PRN; +diphenhydrAMINE 50 MG/ML VIAL IVP PRN
[2020-09-03 06:59] LABS: BASOPHILS % (AUTO) 0.7 % (0.0-2.0); EOSINOPHILS # (AUTO) 0.1 K/uL (0-0.4); EOSINOPHILS % (AUTO) 1.3 % (0.0-4.0); HEMATOCRIT 40.5 % (36-48); HEMOGLOBIN 13.7 g/dL (12.0-16.0); LYMPHOCYTES # (AUTO) 1.9 K/uL (2.5-16.5); LYMPHOCYTES % (AUTO) 28.9 % (20.5-51.1); MEAN CORPUSCULAR HEMOGLOBIN 31 pg (27-31); MEAN CORPUSCULAR HGB CONC 34 g/dL (33-37); MEAN CORPUSCULAR VOLUME 91.2 fL (80-94); MONOCYTES # (AUTO) 0.6 K/uL (0.8-1.0); MONOCYTES % (AUTO) 9.9 % (1.7-9.3); NEUTROPHILS # (AUTO) 3.8 K/uL (1.8-7.7); NEUTROPHILS % (AUTO) 59.2 % (42.2-75.2); PLATELET COUNT (AUTO) 274 K/uL (140-450); RED BLOOD CELL COUNT(AUTO) 4.44 MIL/uL (4.20-5.40); RED CELL DISTRIBUTION WIDTH 13.8 % (11.6-13.7); WHITE BLOOD COUNT (AUTO) 6.4 K/uL (4.8-10.8)
[2020-09-03 07:20] LABS: ALBUMIN 4.5 g/dL (3.4-5.0); ANION GAP 12.4 (8-16); CARBON DIOXIDE 28.8 mmol/L (21-32); CREATININE 0.6 mg/dL (0.6-1.3); POTASSIUM 4.2 mmol/L (3.5-5.1); TOTAL BILIRUBIN 0.5 mg/dL (0.0-1.0)
[2020-09-03] MEDS ORDERED: LIDOCAINE 1% 500 MG/50 ML VIAL ONE (07:30)
[2020-09-03] MEDS ORDERED: BUPIVACAINE-MPF/EPI 0.5% 30 ML VIAL INJ ONE (07:30)
[2020-09-03] MEDS ORDERED: MIDAZOLAM 2 MG/2 ML VIAL ONE (08:02)
[2020-09-03] MEDS ORDERED: SUCCINYLCHOLINE CHLORIDE 200 MG/10 ML VIAL IVP ONE (08:02)
[2020-09-03] MEDS ORDERED: METOCLOPRAMIDE 10 MG/2 ML INJ VIAL ONE (08:02)
[2020-09-03] MEDS ORDERED: fentaNYL citrate 0.05 MG/ML VIAL ONE (08:02)
[2020-09-03] MEDS ORDERED: LIDOCAINE 2% 100 MG/5 ML SYR IVP ONE (08:02)
[2020-09-03] MEDS ORDERED: GLYCOPYRROLATE 0.2 MG/ML VIAL ONE (08:02)
[2020-09-03] MEDS ORDERED: KETOROLAC 30 MG/ML VIAL ONE ×2 (08:02)
[2020-09-03] MEDS ORDERED: NEOSTIGMINE 1:1000 10 MG/10 ML VIAL ONE (08:02)
[2020-09-03] MEDS ORDERED: ePHEDrine 50 MG/ML VIAL ONE (08:02)
[2020-09-03] MEDS ORDERED: SEVOFLURANE 250 ML BTL INH ONE (08:02)
[2020-09-03] MEDS ORDERED: PROPOFOL 200 MG/20 ML VIAL IV ONE (08:02)
[2020-09-03] MEDS ORDERED: ONDANSETRON 4 MG/2 ML VIAL ONE (08:02)
[2020-09-03] MEDS ORDERED: ONDANSETRON 4 MG/2 ML VIAL IVP PRN (08:45)
[2020-09-03] MEDS ORDERED: diphenhydrAMINE 50 MG/ML VIAL IVP PRN (08:45)
[2020-09-03] MEDS ORDERED: MEPERIDINE 25 MG/ML SYR IVP PRN (08:45)
[2020-09-03] MEDS ORDERED: bisacodyL 10 MG SUPP RC SCH (09:00)
[2020-09-03] MEDS ORDERED: HYDROmorphone PFS 2 MG/ML SYR ONE (10:06)
[2020-09-03] MEDS: HYDROmorphone 1 MG/ML AMP IVP PRN ×4 (10:09→10:44)
[2020-09-03] MEDS: LACTATED RINGERS 1,000 ML IV SCH ×2 (12:21→22:22)
[2020-09-03] MEDS: oxyCODONE/APAP 5/325 MG 1 TAB TAB PO PRN (20:08)
[2020-09-04] MEDS: oxyCODONE/APAP 5/325 MG 1 TAB TAB PO PRN ×2 (02:09→06:36)
[2020-09-04] MEDS: LACTATED RINGERS 1,000 ML IV SCH (06:38)
[2020-09-04 08:11] LABS: BASOPHILS % (AUTO) 0.5 % (0.0-2.0); EOSINOPHILS % (AUTO) 0.3 % (0.0-4.0); HEMATOCRIT 23.3 % (36-48); LYMPHOCYTES # (AUTO) 2.1 K/uL (2.5-16.5); LYMPHOCYTES % (AUTO) 33.8 % (20.5-51.1); MEAN CORPUSCULAR HEMOGLOBIN 31 pg (27-31); MEAN CORPUSCULAR HGB CONC 34 g/dL (33-37); MEAN CORPUSCULAR VOLUME 90.5 fL (80-94); MONOCYTES # (AUTO) 0.9 K/uL (0.8-1.0); MONOCYTES % (AUTO) 14.1 % (1.7-9.3); NEUTROPHILS # (AUTO) 3.3 K/uL (1.8-7.7); NEUTROPHILS % (AUTO) 51.3 % (42.2-75.2); PLATELET COUNT (AUTO) 205 K/uL (140-450); RED BLOOD CELL COUNT(AUTO) 2.58 MIL/uL (4.20-5.40); RED CELL DISTRIBUTION WIDTH 13.9 % (11.6-13.7); WHITE BLOOD COUNT (AUTO) 6.3 K/uL (4.8-10.8)
--- NOTE | 2020-09-04 09:55 | NUR ---
PATIENT HAS BEEN SCREENED AND CATEGORIZED LOW NUTRITION RISK. PATIENT WILL BE SEEN WITHIN 7 DAYS OF ADMISSION. 09/10/[address]
[2020-09-04] MEDS ORDERED: ONDANSETRON 4 MG/2 ML VIAL IVP PRN (10:10)
[2020-09-04] MEDS ORDERED: HYDROcodone/APAP 5/325 MG 1 TAB TAB PO PRN (10:35)
[2020-09-04] MEDS ORDERED: SIMETHICONE 80 MG TAB.CHEW PO PRN (10:35)
[2020-09-04] MEDS ORDERED: oxyCODONE/APAP 5/325 MG 1 TAB TAB PO PRN (10:35)
[2020-09-04] MEDS ORDERED: KETOROLAC 15 MG/ML VIAL IVP PRN (12:20)
[2020-09-04] MEDS ORDERED: IRON SUCROSE COMPLEX 100 MG/5 ML VIAL IVP SCH (14:00)
[2020-09-04] MEDS: FERROUS SULFATE 325 MG TABEC PO SCH (18:29)
[2020-09-04] MEDS ORDERED: CAMERA MC ONE (20:09)
[2020-09-04] MEDS: HYDROcodone/APAP 5/325 MG 1 TAB TAB PO PRN (20:35)
[2020-09-04] MEDS ORDERED: diphenhydrAMINE 50 MG CAP PO PRN (21:00)
[2020-09-05] MEDS: HYDROcodone/APAP 5/325 MG 1 TAB TAB PO PRN ×2 (04:05→10:46)
[2020-09-05] MEDS: FERROUS SULFATE 325 MG TABEC PO SCH (09:25)
== END 2020-09-05 11:50 | disposition home or self-care (01) | DRG 513 ==
LOC: MDS 06:09 → MFCC 06:10 → MDS 19:29
PROVIDERS: ADMIT Obstetrics & Gynecology; ATTEND Obstetrics & Gynecology
PROC: 0HB7XZZ Excision of Abdomen Skin, External Approach (ICD-10-PCS; 2020-09-03)
PROC: 0UT10ZZ Resection of Left Ovary, Open Approach (ICD-10-PCS; principal; 2020-09-03 07:30)
DX: N80.1 Endometriosis of ovary (principal); Z20.828 Contact with and (suspected) exposure to other viral communicable diseases; D64.9 Anemia, unspecified; E03.9 Hypothyroidism, unspecified; L91.0 Hypertrophic scar; Z90.710 Acquired absence of both cervix and uterus; Z86.19 Personal history of other infectious and parasitic diseases
CPT/HCPCS: 36415; 80053; 85025; 86870; 86886; 86900; 86901; 88305; J0330; J0690; J1170; J1756; J1885; J2001; J2175; J2250; J2405; J2704; J2710; J2765; J3010; J3490; J7060; J7120; Q0163; U0003

== ENCOUNTER 2020-09-11 09:11 | Inpatient (IN) | payer OTHER ==
[~2020-09-11] VITALS: Ht 162.6 cm; Wt 54.9 kg
[2020-09-11 09:22] VITALS: BP 117/70
--- NOTE | 2020-09-11 09:26 | NUR ---
TO LOBBY A/W BED AMBULATORY
[2020-09-11 09:50] VITALS: BP 117/70
--- NOTE | 2020-09-11 10:37 | NUR ---
SEEN BY ERMD AND EVALUATED.
[2020-09-11 11:15] LABS: BASOPHILS # (AUTO) 0.1 K/uL (0.00-0.22); BASOPHILS % (AUTO) 0.7 % (0.0-2.0); EOSINOPHILS % (AUTO) 0.4 % (0.0-4.0); HEMATOCRIT 31.2 % (36-48); HEMOGLOBIN 10.3 g/dL (12.0-16.0); LYMPHOCYTES # (AUTO) 2.6 K/uL (2.5-16.5); LYMPHOCYTES % (AUTO) 19.4 % (20.5-51.1); MEAN CORPUSCULAR HEMOGLOBIN 31 pg (27-31); MEAN CORPUSCULAR HGB CONC 33 g/dL (33-37); MEAN CORPUSCULAR VOLUME 93.2 fL (80-94); MONOCYTES # (AUTO) 1.2 K/uL (0.8-1.0); MONOCYTES % (AUTO) 8.8 % (1.7-9.3); NEUTROPHILS # (AUTO) 9.6 K/uL (1.8-7.7); NEUTROPHILS % (AUTO) 70.7 % (42.2-75.2); PLATELET COUNT (AUTO) 517 K/uL (140-450); RED BLOOD CELL COUNT(AUTO) 3.35 MIL/uL (4.20-5.40); RED CELL DISTRIBUTION WIDTH 15.6 % (11.6-13.7); WHITE BLOOD COUNT (AUTO) 13.5 K/uL (4.8-10.8)
[2020-09-11 11:27] LABS: ANION GAP 10.8 (8-16); CREATININE 0.5 mg/dL (0.6-1.3); POTASSIUM 3.8 mmol/L (3.5-5.1)
[2020-09-11 11:32] LABS: ALBUMIN 4.1 g/dL (3.4-5.0); BILIRUBIN,DIRECT 0.2 mg/dL (0.0-0.3); TOTAL BILIRUBIN 0.9 mg/dL (0.0-1.0)
[2020-09-11] MEDS ORDERED: NACL 0.9% 1,000 ML IV ONE (14:45)
[2020-09-11] MEDS: metroNIDAZOLE 500 MG/NS PREMIX 100 ML IV SCH (18:23)
[2020-09-11] MEDS ORDERED: oxyCODONE/APAP 5/325 MG 1 TAB TAB PO PRN ×2 (18:35)
[2020-09-11] MEDS ORDERED: IBUPROFEN 800 MG TAB PO PRN (18:35)
[2020-09-12] MEDS ORDERED: NACL 0.9% 1,000 ML IV SCH (02:05)
[2020-09-12] MEDS: metroNIDAZOLE 500 MG/NS PREMIX 100 ML IV SCH ×3 (02:32→17:54)
[2020-09-12] MEDS: HYDROcodone/APAP 5/325 MG 1 TAB TAB PO PRN ×3 (06:47→21:35)
--- NOTE | 2020-09-12 06:55 | NUR ---
PATIENT HAS BEEN SCREENED AND CATEGORIZED LOW NUTRITION RISK. PATIENT WILL BE SEEN WITHIN 7 DAYS OF ADMISSION. 09/18/20 BR[address] MBA,RD
[2020-09-12 07:47] LABS: BASOPHILS # (AUTO) 0.1 K/uL (0.00-0.22); BASOPHILS % (AUTO) 0.7 % (0.0-2.0); EOSINOPHILS # (AUTO) 0.1 K/uL (0-0.4); EOSINOPHILS % (AUTO) 1.6 % (0.0-4.0); HEMATOCRIT 27.3 % (36-48); HEMOGLOBIN 9.2 g/dL (12.0-16.0); LYMPHOCYTES # (AUTO) 3.1 K/uL (2.5-16.5); LYMPHOCYTES % (AUTO) 36.3 % (20.5-51.1); MEAN CORPUSCULAR HEMOGLOBIN 32 pg (27-31); MEAN CORPUSCULAR HGB CONC 34 g/dL (33-37); MONOCYTES # (AUTO) 0.6 K/uL (0.8-1.0); MONOCYTES % (AUTO) 7.4 % (1.7-9.3); NEUTROPHILS # (AUTO) 4.6 K/uL (1.8-7.7); PLATELET COUNT (AUTO) 444 K/uL (140-450); RED BLOOD CELL COUNT(AUTO) 2.91 MIL/uL (4.20-5.40); RED CELL DISTRIBUTION WIDTH 15.2 % (11.6-13.7); WHITE BLOOD COUNT (AUTO) 8.4 K/uL (4.8-10.8)
[2020-09-12 08:21] LABS: ALBUMIN 3.3 g/dL (3.4-5.0); ANION GAP 11.4 (8-16); CARBON DIOXIDE 26.1 mmol/L (21-32); CREATININE 0.5 mg/dL (0.6-1.3); POTASSIUM 3.5 mmol/L (3.5-5.1); TOTAL BILIRUBIN 0.6 mg/dL (0.0-1.0)
[2020-09-12] MEDS: NACL 0.9% 1,000 ML IV SCH (10:08)
[2020-09-12 13:04] LABS: FREE T4 (FREE THYROXINE) 1.01 ng/dL (0.76-1.46); THYROID STIMULATING HORMONE 1.21 uIU/mL (0.34-3.74)
[2020-09-12] MEDS: LORazepam 0.5 MG TAB PO PRN (17:02)
[2020-09-12] MEDS: MIRTAZAPINE 15 MG TAB PO SCH (22:04)
[2020-09-13] MEDS: NACL 0.9% 1,000 ML IV SCH ×2 (02:07→17:59)
[2020-09-13] MEDS: metroNIDAZOLE 500 MG/NS PREMIX 100 ML IV SCH ×3 (02:08→17:58)
[2020-09-13] MEDS: HYDROcodone/APAP 5/325 MG 1 TAB TAB PO PRN ×5 (05:19→20:04)
[2020-09-13 08:15] LABS: FERRITIN 235 ng/mL (15-150); TRANSFERRIN 197 mg/dL (192-364)
[2020-09-13] MEDS: MIRTAZAPINE 15 MG TAB PO SCH (21:30)
[2020-09-14] MEDS: metroNIDAZOLE 500 MG/NS PREMIX 100 ML IV SCH ×3 (02:17→18:03)
[2020-09-14] MEDS: HYDROcodone/APAP 5/325 MG 1 TAB TAB PO PRN ×2 (06:51→18:08)
[2020-09-14] MEDS: NACL 0.9% 1,000 ML IV SCH (09:38)
[2020-09-14] MEDS: MIRTAZAPINE 15 MG TAB PO SCH (21:16)
[2020-09-15] MEDS: metroNIDAZOLE 500 MG/NS PREMIX 100 ML IV SCH ×2 (02:05→09:56)
[2020-09-15] MEDS: NACL 0.9% 1,000 ML IV SCH (02:08)
[2020-09-15] MEDS: HYDROcodone/APAP 5/325 MG 1 TAB TAB PO PRN (04:20)
[2020-09-15] MEDS: LORazepam 0.5 MG TAB PO PRN (09:05)
[2020-09-15] MEDS ORDERED: MULTIVITAMIN-12 10 ML, THIAMINE 100 MG, FOLIC ACID 1 MG, MAGNESIUM SULFATE 50% 2,000 MG... IV SCH ×5 (11:00)
[2020-09-15] MEDS ORDERED: CAMERA MC ONE (13:14)
== END 2020-09-15 16:25 | disposition home or self-care (01) | DRG 813 ==
LOC: MED 09:11 → MMU 14:37 → MFCC 15:25
PROVIDERS: ADMIT Obstetrics & Gynecology; ATTEND Obstetrics & Gynecology
DX: N99.843 Postprocedural seroma of a genitourinary system organ or structure following other procedure (principal); E44.0 Moderate protein-calorie malnutrition; E03.9 Hypothyroidism, unspecified; F32.9 Major depressive disorder, single episode, unspecified; F41.9 Anxiety disorder, unspecified; D64.9 Anemia, unspecified; G47.00 Insomnia, unspecified; Z68.20 Body mass index [BMI] 20.0-20.9, adult; Z90.710 Acquired absence of both cervix and uterus
CPT/HCPCS: 36415; 80048; 80053; 80076; 82607; 82728; 82746; 83540; 84439; 84443; 84479; 84484; 85025; 85045; 87070; 87075; 87205; 93005; 99285; A9153; J0696; J3411; J3475; J3490; J7060; J7120

== ENCOUNTER 2023-03-11 18:05 | Emergency (ER) | payer OTHER ==
[~2023-03-11] VITALS: Ht 162.6 cm; Wt 63.5 kg
[2023-03-11 18:42] VITALS: BP 161/93; PULSE 102; RESP 20; TEMP 101; O2SAT 98
[2023-03-11] MEDS ORDERED: NACL 0.9% 1,000 ML IV ONE (19:30)
[2023-03-11] MEDS ORDERED: MORPHINE SULFATE 4 MG/ML SYR IVP ONE (19:30)
[2023-03-11] MEDS ORDERED: KETOROLAC 30 MG/ML VIAL IVP ONE (19:30)
[2023-03-11 19:50] LABS: APPEARANCE,URINE CLEAR (CLEAR); BILIRUBIN,URINE NEGATIVE (NEGATIVE); BLOOD, URINE 1+ (NEGATIVE); COLOR,URINE YELLOW (YELLOW); LEUKOCYTE ESTERASE ,URINE NEGATIVE (NEGATIVE); NITRITE, URINE NEGATIVE (NEGATIVE); UGLUCOSE NEGATIVE (NEGATIVE)
--- NOTE | 2023-03-11 19:50 | NUR ---
labs collected and sent to lab
[2023-03-11 20:13] LABS: RBC,URINE 0-5 /HPF (0-5)
--- NOTE | 2023-03-11 20:15 | NUR ---
pt on bed. A/Ox4. not in distress. on monitor
--- NOTE | 2023-03-11 20:24 | NUR ---
Pt taken to CT
[2023-03-11 20:26] LABS: BASOPHILS % (AUTO) 0.3 % (0.0-2.0); EOSINOPHILS % (AUTO) 0.1 % (0.0-4.0); HEMATOCRIT 35.7 % (36-48); HEMOGLOBIN 11.8 g/dL (12.0-16.0); LYMPHOCYTES # (AUTO) 1.1 K/uL (2.5-16.5); LYMPHOCYTES % (AUTO) 10.1 % (20.5-51.1); MEAN CORPUSCULAR HEMOGLOBIN 31 pg (27-31); MEAN CORPUSCULAR HGB CONC 33 g/dL (33-37); MEAN CORPUSCULAR VOLUME 94.7 fL (80-94); MONOCYTES # (AUTO) 0.9 K/uL (0.8-1.0); MONOCYTES % (AUTO) 8.2 % (1.7-9.3); NEUTROPHILS # (AUTO) 8.7 K/uL (1.8-7.7); NEUTROPHILS % (AUTO) 81.3 % (42.2-75.2); PLATELET COUNT (AUTO) 226 K/uL (140-450); RED BLOOD CELL COUNT(AUTO) 3.77 MIL/uL (4.20-5.40); RED CELL DISTRIBUTION WIDTH 13.6 % (11.6-13.7); WHITE BLOOD COUNT (AUTO) 10.7 K/uL (4.8-10.8)
--- NOTE | 2023-03-11 20:33 | NUR ---
pt returned from ct via [facility]
[2023-03-11 20:45] LABS: ALBUMIN 4.2 g/dL (3.4-5.0); ANION GAP 15.7 (8-16); CREATININE 0.7 mg/dL (0.6-1.3); POTASSIUM 3.7 mmol/L (3.5-5.1); TOTAL BILIRUBIN 0.4 mg/dL (0.0-1.0)
[2023-03-11] MEDS ORDERED: IBUP-2213 PO (21:25)
[2023-03-11] MEDS ORDERED: ACET-10509 PO (21:25)
[2023-03-11] MEDS ORDERED: CYCL-711 PO (21:25)
[2023-03-11 22:00] VITALS: BP 140/86; PULSE 92; RESP 20; TEMP 98.6; O2SAT 98
--- NOTE | 2023-03-11 22:00 | NUR ---
Patient discharged with v/s stable. Written and verbal after care instructions given and explained. Patient alert, oriented and verbalized understanding of instructions. Ambulatory with steady gait. All questions addressed prior to discharge. ID band removed. Patient advised to follow up with PMD. Rx given to pt. Patient educated on indication of medication including possible reaction and side effects. Opportunity to ask questions provided and answered.
== END 2023-03-11 22:00 | disposition home or self-care (01) ==
LOC: MED 18:05
DX: R10.9 Unspecified abdominal pain (principal); Z20.822 Contact with and (suspected) exposure to COVID-19; Z79.899 Other long term (current) drug therapy
CPT/HCPCS: 36415; 74176; 80053; 81001; 81025; 83605; 83690; 85025; 87040; 87426; 87804; 96361; 96374; 96375; 99285; J1885; J2270; J7030

== ENCOUNTER 2023-04-03 17:30 | Emergency (ER) | payer OTHER ==
[~2023-04-03] VITALS: Ht 162.6 cm; Wt 61.2 kg
[~2023-04-03 17:30] MED LIST changes: +ACET-10509 PO; +CYCL-711 PO; +IBUP-2213 PO; -ONDANSETRON 4 MG/2 ML VIAL IVP PRN; -diphenhydrAMINE 50 MG/ML VIAL IVP PRN
[2023-04-03 17:41] VITALS: BP 143/73; PULSE 115; RESP 20; TEMP 101.2; O2SAT 99
[2023-04-03] MEDS ORDERED: NACL 0.9% 1,000 ML IV ONE (18:25)
[2023-04-03] MEDS ORDERED: KETOROLAC 30 MG/ML VIAL IVP ONE (18:30)
[2023-04-03 18:36] LABS: APPEARANCE,URINE CLEAR (CLEAR); BILIRUBIN,URINE NEGATIVE (NEGATIVE); BLOOD, URINE 2+ (NEGATIVE); COLOR,URINE YELLOW (YELLOW); LEUKOCYTE ESTERASE ,URINE TRACE (NEGATIVE); NITRITE, URINE NEGATIVE (NEGATIVE); UGLUCOSE NEGATIVE (NEGATIVE)
[2023-04-03 19:01] LABS: BASOPHILS % (AUTO) 0.2 % (0.0-2.0); HEMATOCRIT 30.6 % (36-48); HEMOGLOBIN 9.9 g/dL (12.0-16.0); LYMPHOCYTES # (AUTO) 1.3 K/uL (2.5-16.5); MEAN CORPUSCULAR HEMOGLOBIN 30 pg (27-31); MEAN CORPUSCULAR HGB CONC 32 g/dL (33-37); MEAN CORPUSCULAR VOLUME 92.4 fL (80-94); MONOCYTES # (AUTO) 1.6 K/uL (0.8-1.0); MONOCYTES % (AUTO) 10.8 % (1.7-9.3); NEUTROPHILS # (AUTO) 11.5 K/uL (1.8-7.7); PLATELET COUNT (AUTO) 316 K/uL (140-450); RED BLOOD CELL COUNT(AUTO) 3.31 MIL/uL (4.20-5.40); RED CELL DISTRIBUTION WIDTH 13.7 % (11.6-13.7); WHITE BLOOD COUNT (AUTO) 14.4 K/uL (4.8-10.8)
[2023-04-03] MEDS ORDERED: cefTRIAXone 1,000 MG VIAL ONE (19:28)
[2023-04-03 19:29] LABS: ALBUMIN 2.7 g/dL (3.4-5.0); CARBON DIOXIDE 22.8 mmol/L (21-32); POTASSIUM 3.8 mmol/L (3.5-5.1); TOTAL BILIRUBIN 0.4 mg/dL (0.0-1.0)
--- NOTE | 2023-04-03 19:30 | NUR ---
report received from seymour tuttle
--- NOTE | 2023-04-03 19:30 | NUR ---
pt resting on bed, a/ox4, not in distress. on monitor, call light oriented and within reach. bed locked in lowest position. side rails x2 for safety
[2023-04-03] MEDS ORDERED: NAPR-54 PO (19:59)
[2023-04-03] MEDS ORDERED: CIPR500T4 PO (19:59)
--- NOTE | 2023-04-03 20:00 | NUR ---
Per Zohreh Draper RN, NaCl 0.9 1L bolus started at 1921 and stopped at 1999. ED director aware.
--- NOTE | 2023-04-03 20:03 | NUR ---
Patient discharged with v/s stable. Written and verbal after care instructions given and explained. New rx cipro and naproxen. Patient verbalized understanding. Ambulatory with steady gait. All questions addressed prior to discharge. Advised to follow up with PMD.
[2023-04-03 23:00] VITALS: BP 130/73; PULSE 115; RESP 20; TEMP 99; O2SAT 99
== END 2023-04-03 20:03 | disposition home or self-care (01) ==
LOC: MED 17:30
DX: N12 Tubulo-interstitial nephritis, not specified as acute or chronic (principal); R50.9 Fever, unspecified; Z79.899 Other long term (current) drug therapy
CPT/HCPCS: 36415; 80053; 81001; 81025; 83605; 85025; 87040; 87086; 96365; 96375; 99284; J0696; J1885; J7030